=== PATIENT | male | born 1985 | race Two or more races ===

== ENCOUNTER 2017-06-08 20:01 | Emergency (ER) | payer OTHER ==
[~2017-06-08] VITALS: Ht 190.5 cm; Wt 95.0 kg
[2017-06-08 20:07] VITALS: BP 130/82
[2017-06-08] MEDS ORDERED: BACITRACIN ZINC OINT 500U/GM, 0.9 GM ONE (21:20)
[2017-06-08] MEDS ORDERED: IBUPROFEN 200 MG TABLET ONE (21:42)
[2017-06-08] MEDS ORDERED: IBUPROFEN 200 MG TABLET PO ONE (22:00)
== END 2017-06-08 22:20 | disposition home or self-care (01) ==
LOC: ED 22:14
DX: S61.412A Laceration without foreign body of left hand, initial encounter (principal); L03.114 Cellulitis of left upper limb; X58.XXXA Exposure to other specified factors, initial encounter; Y93.89 Activity, other specified; Y92.89 Other specified places as the place of occurrence of the external cause; Y99.8 Other external cause status
CPT/HCPCS: 29125